=== PATIENT | female | born 1970 | race Two or more races ===

== ENCOUNTER 2016-09-12 10:42 | Emergency (ER) | payer BC ==
[~2016-09-12] VITALS: Ht 157.5 cm; Wt 59.0 kg
[2016-09-12] MEDS ORDERED: KETOROLAC TROMETH 60MG/2ML VIAL IM ONE (11:30)
[2016-09-12 11:32] VITALS: BP 138/95
[2016-09-12 11:38] LABS: Basophils # (auto) 0 uL; Basophils % (auto) 0.6 % (0.0-2.0); Eosinophils # (auto) 0.1 uL; Eosinophils % (auto) 0.7 % (0.0-7.0); Hematocrit 45.3 % (36.0-46.0); Hemoglobin 15.4 g/dL (12.2-16.2); Lymphocytes # (auto) 3.1 uL; Mean Corpuscular Hgb Conc. 33.9 g/dL (32.0-36.0); Mean Corpuscular Volume 88.5 fL (80.0-100.0); Mean Platelet Volume 9.4 fL (7.4-10.4); Monocytes # (auto) 0.6 uL; Monocytes % (auto) 6.4 % (0.0-12.0); Neutrophils # (auto) 4.9 uL; Neutrophils % (auto) 56.3 % (37.0-80.0); Platelet Count (auto) 310 10^3/uL (140-450); Red Cell Distribution Width 13.1 % (11.6-16.0); White Blood Cell 8.6 10^3/uL (4.4-10.8)
[2016-09-12 12:01] LABS: Albumin 4.4 g/dL (3.4-5.0); BUN/Creatinine Ratio 19.3; Bilirubin, Total 0.7 mg/dL (0.2-1.0); Calcium 9.4 mg/dL (8.5-10.1); Potassium 3.7 mmol/L (3.5-5.1); Total Protein 8.4 g/dL (6.4-8.2)
== END 2016-09-12 13:14 | disposition home or self-care (01) ==
LOC: ER 10:46
DX: D25.9 Leiomyoma of uterus, unspecified (principal); E78.5 Hyperlipidemia, unspecified
CPT/HCPCS: 36415; 74176; 76830; 76856; 80053; 85025; 96372; 99285; J1885

== ENCOUNTER → 2016-12-11 | Outpatient (CLI) | payer BC ==
[2016-12-11 08:36] LABS: Basophils # (auto) 0 uL; Basophils % (auto) 0.5 % (0.0-2.0); CONDITION Y; Eosinophils # (auto) 0.1 uL; Eosinophils % (auto) 2.1 % (0.0-7.0); Hematocrit 43.3 % (36.0-46.0); Hemoglobin 14.9 g/dL (12.2-16.2); Lymphocytes # (auto) 2.8 uL; Lymphocytes % (auto) 42.1 % (10.0-50.0); Mean Corpuscular Hemoglobin 30.8 pg (28.0-32.0); Mean Corpuscular Hgb Conc. 34.3 g/dL (32.0-36.0); Mean Corpuscular Volume 89.7 fL (80.0-100.0); Mean Platelet Volume 9.7 fL (7.4-10.4); Monocytes # (auto) 0.5 uL; Monocytes % (auto) 6.8 % (0.0-12.0); Neutrophils # (auto) 3.2 uL; Neutrophils % (auto) 48.5 % (37.0-80.0); Platelet Count (auto) 260 10^3/uL (140-450); Red Cell Distribution Width 13.2 % (11.6-16.0); White Blood Cell 6.7 10^3/uL (4.4-10.8)
[2016-12-11 08:40] LABS: Urine Bilirubin Negative (Negative); Urine Blood Negative /uL (Negative); Urine Color Yellow (Yellow); Urine Glucose Normal (Normal); Urine Ketone Negative (Negative); Urine Nitrite Negative (Negative); Urine RBC <1 /hpf (0 - 4); Urine Squamous Epithelial Cell MOD /hpf (<5); Urine Urobilinogen Normal (Negative); Urine pH 6.5 (5.0-8.0)
[2016-12-11 09:09] LABS: Albumin 3.9 g/dL (3.4-5.0); BUN/Creatinine Ratio 24.4; Bilirubin, Total 0.5 mg/dL (0.2-1.0); Calcium 9.3 mg/dL (8.5-10.1); Potassium 4.2 mmol/L (3.5-5.1)
== END | disposition home or self-care (01) ==
LOC: LAB 08:00
PROVIDERS: ATTEND Family Medicine
DX: F33.1 Major depressive disorder, recurrent, moderate (principal); R11.10 Vomiting, unspecified; Z00.00 Encounter for general adult medical examination without abnormal findings
CPT/HCPCS: 36415; 80053; 80061; 81001; 82306; 82607; 83036; 84443; 85025

== ENCOUNTER → 2018-11-19 | Outpatient (CLI) | payer BC ==
[2018-11-19 08:50] LABS: Urine Bacteria NONE SEEN /hpf (None Seen); Urine Blood Negative /uL (Negative); Urine Mucus FEW (None Seen); Urine Specific Gravity 1.018 (1.001-1.035); Urine WBC 1 /hpf (0 - 5)
[2018-11-19 08:54] LABS: Basophils # (auto) 0 uL; Basophils % (auto) 0.7 % (0.0-2.0); Eosinophils # (auto) 0.1 uL; Eosinophils % (auto) 1.3 % (0.0-7.0); Hematocrit 43.4 % (36.0-46.0); Hemoglobin 14.5 g/dL (12.2-16.2); Lymphocytes # (auto) 1.9 uL; Lymphocytes % (auto) 31.6 % (10.0-50.0); Mean Corpuscular Hemoglobin 30.1 pg (28.0-32.0); Mean Corpuscular Hgb Conc. 33.3 g/dL (32.0-36.0); Mean Corpuscular Volume 90.2 fL (80.0-100.0); Monocytes # (auto) 0.5 uL; Monocytes % (auto) 8.5 % (0.0-12.0); Neutrophils # (auto) 3.5 uL; Neutrophils % (auto) 57.9 % (37.0-80.0); Nucleated Red Blood Cells % 0.4 %; Platelet Count (auto) 231 10^3/uL (140-450); Red Blood Cells 4.81 10^6/uL (4.0-5.20); Red Cell Distribution Width 13.3 % (11.8-14.3); White Blood Cell 5.9 10^3/uL (4.4-10.8)
[2018-11-19 09:15] LABS: Calcium 9.3 mg/dL (8.5-10.1); Potassium 4.2 mmol/L (3.5-5.1)
[2018-11-19 09:21] LABS: Bilirubin, Total 0.6 mg/dL (0.2-1.0); Total Protein 7.8 g/dL (6.4-8.2)
== END | disposition home or self-care (01) ==
LOC: LAB 08:24
PROVIDERS: ATTEND Family Medicine
DX: E55.9 Vitamin D deficiency, unspecified (principal); E78.00 Pure hypercholesterolemia, unspecified; E67.8 Other specified hyperalimentation; F41.9 Anxiety disorder, unspecified
CPT/HCPCS: 36415; 80053; 80061; 81001; 82306; 82607; 84443; 85025

== ENCOUNTER → 2020-08-25 | Outpatient (CLI) | payer BC | END | disposition home or self-care (01) | LOC: XYW 15:02 | PROVIDERS: ATTEND Family Medicine | DX: S83.251A Bucket-handle tear of lateral meniscus, current injury, right knee, initial encounter (principal); M94.261 Chondromalacia, right knee; M25.461 Effusion, right knee; M25.861 Other specified joint disorders, right knee; M89.8X8 Other specified disorders of bone, other site; M85.68 Other cyst of bone, other site; G89.29 Other chronic pain; M25.512 Pain in left shoulder; X58.XXXA Exposure to other specified factors, initial encounter; Y93.89 Activity, other specified; Y92.89 Other specified places as the place of occurrence of the external cause; Y99.8 Other external cause status | CPT/HCPCS: 73721 ==

== ENCOUNTER 2020-10-05 06:11 | Day surgery (SDC) | payer BC ==
[2020-10-01 10:25] LABS: Basophils # (auto) 0 10 ^3/uL (0-0.2); Basophils % (auto) 0.4 % (0.0-2.0); Eosinophils # (auto) 0.1 10 ^3/uL (0-0.8); Eosinophils % (auto) 1.1 % (0.0-7.0); Hematocrit 43.6 % (36.0-46.0); Hemoglobin 15.1 g/dL (12.2-16.2); Lymphocytes # (auto) 2.2 10 ^3/uL (0.4-5.4); Lymphocytes % (auto) 34.7 % (10.0-50.0); Mean Corpuscular Hemoglobin 31.2 pg (28.0-32.0); Mean Corpuscular Hgb Conc. 34.5 g/dL (32.0-36.0); Mean Corpuscular Volume 90.3 fL (80.0-100.0); Monocytes # (auto) 0.5 10 ^3/uL (0-1.3); Monocytes % (auto) 7.1 % (0.0-12.0); Neutrophils # (auto) 3.6 10 ^3/uL (1.6-8.6); Neutrophils % (auto) 56.7 % (37.0-80.0); Nucleated Red Blood Cells % 0.1 %; Red Blood Cells 4.84 10^6/uL (4.0-5.20); Red Cell Distribution Width 12.9 % (11.8-14.3); White Blood Cell 6.4 10^3/uL (4.4-10.8)
[2020-10-01 10:32] LABS: Urine Bacteria NONE SEEN /hpf (None Seen); Urine Blood Negative /uL (Negative); Urine Mucus FEW (None Seen); Urine WBC 12 /hpf (0 - 5)
[2020-10-01 10:45] LABS: INR 0.98 (0.9-1.15)
[2020-10-01 10:57] LABS: Albumin 4.1 g/dL (3.4-5.0); Calcium 9.4 mg/dL (8.5-10.1)
[2020-10-01 11:01] LABS: BUN/Creatinine Ratio 25.7; Bilirubin, Total 0.9 mg/dL (0.2-1.0)
[~2020-10-05] VITALS: Ht 157.5 cm; Wt 59.0 kg
[~2020-10-05 06:11] MED LIST: LAMO100T44 PO; QUET25TA46 PO; TOPI25TA84 PO
[2020-10-05] MEDS ORDERED: ceFAZolin 1GM/50ML 50 ML IV ONE (06:50)
[2020-10-05] MEDS ORDERED: EPINEPHrine HCL 1 MG/1 ML AMP ONE (07:14)
[2020-10-05] MEDS ORDERED: PHENYLEPHRINE HCL 10 MG/ML VL IV ONE (07:15)
[2020-10-05] MEDS ORDERED: METOCLOPRAMIDE HCL 5MG/ml INJ 2ml VIAL IV ONE (07:15)
[2020-10-05] MEDS ORDERED: SUCCINYLCHOLINE CHLORIDE 20 MG/ML 10ML VIAL IV ONE (07:15)
[2020-10-05] MEDS ORDERED: fentaNYL CITRATE 100 MCG/2 ML VL ONE (07:20)
[2020-10-05] MEDS ORDERED: MIDAZOLAM HCL 1MG/1ML-2 ML VIAL ONE (07:20)
[2020-10-05] MEDS ORDERED: MEPERIDINE HCL (50 MG/ML) 1 ML VIAL ONE (07:21)
[2020-10-05] MEDS ORDERED: PROPOFOL 10 MG/ML 20 ML IV ONE (07:43)
[2020-10-05] MEDS ORDERED: DexAMETHasone SOD PHOS 10MG/1ML VIAL INJ ONE (07:43)
[2020-10-05] MEDS ORDERED: MIDAZOLAM HCL 1MG/1ML-2 ML VIAL IV PRN (08:15)
[2020-10-05] MEDS ORDERED: HYDROmorphone HCL 2 MG/ML VL IV PRN (08:15)
[2020-10-05] MEDS ORDERED: LABETALOL HCL 5 MG/ML 4ML SYRINGE IV PRN (08:15)
[2020-10-05] MEDS ORDERED: KETOROLAC TROMETH 30 MG/ML 1ML VIAL IV ONE (08:15)
[2020-10-05] MEDS ORDERED: ePHEDrine SULFATE 50 MG/ML AMP IV PRN (08:15)
[2020-10-05] MEDS ORDERED: MORPHINE SULFATE 4 MG/ML SYR/VIAL IV PRN (08:15)
[2020-10-05] MEDS ORDERED: ONDANSETRON HCL 4 MG/2 ML VIAL IV PRN (08:15)
[2020-10-05] MEDS: BUPIVACAINE HCL 50 ML ONE (08:40)
[2020-10-05 09:50] VITALS: BP 108/70
== END 2020-10-05 10:00 | disposition home or self-care (01) ==
LOC: SUR 06:11
PROVIDERS: ATTEND Orthopaedic Surgery Sports Medicine
DX: M23.202 Derangement of unspecified lateral meniscus due to old tear or injury, unspecified knee (principal); F32.9 Major depressive disorder, single episode, unspecified; F29 Unspecified psychosis not due to a substance or known physiological condition; F41.9 Anxiety disorder, unspecified; Z20.822 Contact with and (suspected) exposure to COVID-19; Z98.890 Other specified postprocedural states; Z79.899 Other long term (current) drug therapy
CPT/HCPCS: 29879; 29881; 36415; 80053; 81001; 84702; 85025; 85610; 85730; J0171; J0330; J0690; J1100; J1885; J2175; J2250; J2370; J2704; J2765; J3010; J3490; U0003

== ENCOUNTER 2021-01-07 17:50 | Emergency (ER) | payer BC ==
[~2021-01-07] VITALS: Ht 157.5 cm; Wt 59.9 kg
[2021-01-07] MEDS ORDERED: ACETAMINOPHEN 325 MG TAB PO ONE (19:45)
[2021-01-07] MEDS ORDERED: ONDANSETRON HCL 4 MG/2 ML VIAL IV ONE (19:45)
[2021-01-07 19:52] LABS: Basophils # (auto) 0.1 10 ^3/uL (0-0.2); Eosinophils # (auto) 0.1 10 ^3/uL (0-0.8); Eosinophils % (auto) 1.1 % (0.0-7.0); Hematocrit 42.6 % (36.0-46.0); Lymphocytes # (auto) 3.2 10 ^3/uL (0.4-5.4); Lymphocytes % (auto) 40.2 % (10.0-50.0); Mean Corpuscular Hgb Conc. 35.1 g/dL (32.0-36.0); Mean Corpuscular Volume 88.3 fL (80.0-100.0); Monocytes # (auto) 0.4 10 ^3/uL (0-1.3); Neutrophils # (auto) 4.2 10 ^3/uL (1.6-8.6); Neutrophils % (auto) 52.7 % (37.0-80.0); Nucleated Red Blood Cells % 0.2 %; Red Blood Cells 4.83 10^6/uL (4.0-5.20); Red Cell Distribution Width 13.7 % (11.8-14.3); White Blood Cell 8.1 10^3/uL (4.4-10.8)
[2021-01-07 20:04] LABS: Albumin 4.1 g/dL (3.4-5.0); Anion Gap 7 (5-15); Blood Urea Nitrogen 14 mg/dL (7-18); Calcium 9.3 mg/dL (8.5-10.1); Carbon Dioxide 24 mmol/L (21-32); Chloride 108 mmol/L (98-107); Glucose 93 mg/dL (74-106); Magnesium 2.3 mg/dL (1.6-2.6); Potassium 3.7 mmol/L (3.5-5.1); Sodium 139 mmol/L (136-145)
[2021-01-07 20:10] LABS: Alanine Aminotransferase 51 U/L (13-56); Alkaline Phosphatase 108 U/L (45-117); Aspartate Aminotransferase 22 U/L (15-37); BUN/Creatinine Ratio 16.9; Bilirubin, Total 0.8 mg/dL (0.2-1.0); GFR African American 94 mL/min; GFR Non-African American 77 mL/min
[2021-01-07 23:15] VITALS: BP 133/78
== END 2021-01-07 23:16 | disposition home or self-care (01) ==
LOC: ER 17:50
DX: M79.18 Myalgia, other site (principal); F41.9 Anxiety disorder, unspecified; R51.9 Headache, unspecified; R07.89 Other chest pain; M54.2 Cervicalgia; E78.5 Hyperlipidemia, unspecified; Z79.899 Other long term (current) drug therapy
CPT/HCPCS: 36415; 71045; 72131; 80053; 83735; 84484; 85025; 93005

== ENCOUNTER → 2021-06-21 | Day surgery (SDC) | payer BC ==
[2021-06-16 10:21] LABS: Basophils # (auto) 0 10 ^3/uL (0-0.2); Basophils % (auto) 0.4 % (0.0-2.0); Eosinophils # (auto) 0 10 ^3/uL (0-0.8); Eosinophils % (auto) 0.4 % (0.0-7.0); Hematocrit 42.2 % (36.0-46.0); Hemoglobin 14.3 g/dL (12.2-16.2); Lymphocytes # (auto) 2.3 10 ^3/uL (0.4-5.4); Lymphocytes % (auto) 38.1 % (10.0-50.0); Mean Corpuscular Hemoglobin 30.4 pg (28.0-32.0); Mean Corpuscular Hgb Conc. 33.8 g/dL (32.0-36.0); Mean Corpuscular Volume 89.8 fL (80.0-100.0); Monocytes # (auto) 0.3 10 ^3/uL (0-1.3); Monocytes % (auto) 5.5 % (0.0-12.0); Neutrophils # (auto) 3.3 10 ^3/uL (1.6-8.6); Neutrophils % (auto) 55.6 % (37.0-80.0); Nucleated Red Blood Cells % 0.1 %; Red Blood Cells 4.69 10^6/uL (4.0-5.20); Red Cell Distribution Width 13.2 % (11.8-14.3)
[2021-06-16 10:29] LABS: Urine Bacteria FEW /hpf (None Seen); Urine Blood Negative /uL (Negative); Urine Mucus FEW (None Seen); Urine Specific Gravity 1.019 (1.001-1.035); Urine WBC 1 /hpf (0 - 5)
[2021-06-16 11:04] LABS: Albumin 4.2 g/dL (3.4-5.0); Total Protein 7.9 g/dL (6.4-8.2)
[2021-06-16 12:42] LABS: Potassium 4.3 mmol/L (3.5-5.1)
[~2021-06-21] VITALS: Ht 157.5 cm; Wt 61.2 kg
[~2021-06-21] MED LIST changes: +ACET1CAP14 PO; +BREX1TAB3 PO; +BUPIVACAINE HCL 50 ML ONE; +EPINEPHrine HCL 1 MG/1 ML AMP ONE; +HYDR1SYP3 PO; +HYDROmorphone HCL 2 MG/ML VL IV PRN; +IBUP400T22 PO; -LAMO100T44 PO; +LIDOCAINE 2% (LOCAL ANESTH.) PF 5ml SDV ONE; +MIDAZOLAM HCL 2MG/2ML 2ml VIAL (1mg/ml) ONE; +ONDANSETRON HCL 4 MG/2 ML VIAL IV PRN; +ONDANSETRON HCL 4 MG/2 ML VIAL ONE; +PROPOFOL 10 MG/ML 20 ML IV ONE; +QUET1TAB11 PO; -QUET25TA46 PO; -TOPI25TA84 PO; +ceFAZolin 1GM/50ML 100 ML IV ONE; +fentaNYL CITRATE 5 ML ONE
[2021-06-21] MEDS: HYDROmorphone HCL 2 MG/ML VL IV PRN ×4 (16:10→16:50)
[2021-06-21 18:10] LABS: Basophils # (auto) 0 10 ^3/uL (0-0.2); Basophils % (auto) 0.4 % (0.0-2.0); Eosinophils # (auto) 0 10 ^3/uL (0-0.8); Hematocrit 36.5 % (36.0-46.0); Hemoglobin 12.1 g/dL (12.2-16.2); Lymphocytes # (auto) 1.2 10 ^3/uL (0.4-5.4); Lymphocytes % (auto) 11.3 % (10.0-50.0); Mean Corpuscular Hemoglobin 30.1 pg (28.0-32.0); Mean Corpuscular Hgb Conc. 33.2 g/dL (32.0-36.0); Mean Corpuscular Volume 90.6 fL (80.0-100.0); Monocytes # (auto) 0.5 10 ^3/uL (0-1.3); Monocytes % (auto) 4.6 % (0.0-12.0); Neutrophils # (auto) 8.7 10 ^3/uL (1.6-8.6); Neutrophils % (auto) 83.7 % (37.0-80.0); Red Blood Cells 4.03 10^6/uL (4.0-5.20); Red Cell Distribution Width 13.2 % (11.8-14.3); White Blood Cell 10.4 10^3/uL (4.4-10.8)
[2021-06-21 18:27] LABS: Albumin 3.3 g/dL (3.4-5.0); Calcium 8.1 mg/dL (8.5-10.1); Potassium 3.7 mmol/L (3.5-5.1)
[2021-06-21 18:33] LABS: BUN/Creatinine Ratio 21.4; Bilirubin, Total 0.5 mg/dL (0.2-1.0); Total Protein 6.1 g/dL (6.4-8.2)
[2021-06-21 19:10] VITALS: BP 126/59
== END | disposition home or self-care (01) ==
LOC: SUR 09:23
PROVIDERS: ATTEND Orthopaedic Surgery Sports Medicine
DX: M75.102 Unspecified rotator cuff tear or rupture of left shoulder, not specified as traumatic (principal); M61.412 Other calcification of muscle, left shoulder; M75.51 Bursitis of right shoulder; G89.29 Other chronic pain; F41.9 Anxiety disorder, unspecified; F32.9 Major depressive disorder, single episode, unspecified; Z20.822 Contact with and (suspected) exposure to COVID-19
CPT/HCPCS: 29826; 29827; 36415; 36600; 71045; 80053; 81001; 81025; 82805; 84484; 84702; 85025; C1713; J0171; J0690; J1170; J2001; J2250; J2405; J2704; J3010; J3490; U0003; A4565

== ENCOUNTER → 2021-08-30 | Outpatient (CLI) | payer BC ==
[~2021-08-30] MED LIST changes: -BUPIVACAINE HCL 50 ML ONE; -EPINEPHrine HCL 1 MG/1 ML AMP ONE; -HYDROmorphone HCL 2 MG/ML VL IV PRN; -LIDOCAINE 2% (LOCAL ANESTH.) PF 5ml SDV ONE; -MIDAZOLAM HCL 2MG/2ML 2ml VIAL (1mg/ml) ONE; -ONDANSETRON HCL 4 MG/2 ML VIAL IV PRN; -ONDANSETRON HCL 4 MG/2 ML VIAL ONE; -PROPOFOL 10 MG/ML 20 ML IV ONE; -ceFAZolin 1GM/50ML 100 ML IV ONE; -fentaNYL CITRATE 5 ML ONE
[2021-08-30 08:11] LABS: Basophils # (auto) 0 10 ^3/uL (0-0.2); Basophils % (auto) 0.5 % (0.0-2.0); Eosinophils # (auto) 0.1 10 ^3/uL (0-0.8); Eosinophils % (auto) 2.2 % (0.0-7.0); Hematocrit 42.2 % (36.0-46.0); Hemoglobin 14.7 g/dL (12.2-16.2); Lymphocytes # (auto) 2.5 10 ^3/uL (0.4-5.4); Lymphocytes % (auto) 43.9 % (10.0-50.0); Mean Corpuscular Hemoglobin 31.2 pg (28.0-32.0); Mean Corpuscular Hgb Conc. 34.8 g/dL (32.0-36.0); Mean Corpuscular Volume 89.6 fL (80.0-100.0); Monocytes # (auto) 0.4 10 ^3/uL (0-1.3); Monocytes % (auto) 7.3 % (0.0-12.0); Neutrophils # (auto) 2.6 10 ^3/uL (1.6-8.6); Neutrophils % (auto) 46.1 % (37.0-80.0); Nucleated Red Blood Cells % 0.1 %; Red Blood Cells 4.71 10^6/uL (4.0-5.20); Red Cell Distribution Width 13.1 % (11.8-14.3); White Blood Cell 5.6 10^3/uL (4.4-10.8)
[2021-08-30 08:15] LABS: Urine Bacteria FEW /hpf (None Seen); Urine Blood Negative /uL (Negative); Urine Mucus FEW (None Seen); Urine Specific Gravity 1.024 (1.001-1.035); Urine WBC 32 /hpf (0 - 5)
[2021-08-30 08:48] LABS: Albumin 4.1 g/dL (3.4-5.0); BUN/Creatinine Ratio 25.3; Bilirubin, Total 0.7 mg/dL (0.2-1.0); Calcium 9.3 mg/dL (8.5-10.1); Total Protein 8.2 g/dL (6.4-8.2)
== END | disposition home or self-care (01) ==
LOC: LAB 07:47
PROVIDERS: ATTEND Student in an Organized Health Care Education/Training Program
DX: Z12.11 Encounter for screening for malignant neoplasm of colon (principal); R73.9 Hyperglycemia, unspecified; R03.0 Elevated blood-pressure reading, without diagnosis of hypertension; E78.5 Hyperlipidemia, unspecified
CPT/HCPCS: 36415; 80053; 80061; 81001; 83036; 84443; 85025

== ENCOUNTER → 2021-10-05 | Outpatient (CLI) | payer BC | END | disposition home or self-care (01) | LOC: LAB 08:12 | PROVIDERS: ATTEND Student in an Organized Health Care Education/Training Program | DX: M25.50 Pain in unspecified joint (principal) | CPT/HCPCS: 36415; 84550; 85652; 86038; 86431 ==

== ENCOUNTER 2024-09-25 16:32 | Inpatient (IN) | payer BC, OTHER ==
[~2024-09-25] VITALS: Ht 157.5 cm; Wt 65.1 kg
[~2024-09-25 16:32] MED LIST changes: +HYDR10SY18 PO; -HYDR1SYP3 PO; +IBUP-1453 PO; -IBUP400T22 PO
--- NOTE | 2024-09-25 17:10 | ED.PDOC ---
HPI Comments HPI: 54y F who presents to the ED via EMS for chief complaint of chest pain. - pt states she has been having chest pressure since 1200 this afternoon - pt states her pain is substernal, constant, non-radiating, with no associated exacerbating or relieving factors - pt states has been associated shortness of breath, generalized malaise and nonspecific mild diarrhea but denies any other symptoms. Patient states that the discomfort radiates to her bilateral neck. - pt states she called EMS and upon arrival, pt states she described her chest pain as chest pressure, and after checking vitals, pt denies any associated symptoms - pt states she went to local ED 2 weeks prior for similar complaints and states she was dx with anxiety and given depressant and discharged - pt otherwise denies any chest pain at this time upon ED arrival Past Medical history: anxiety, gastritis Past Surgical history: knee and L arm surgery Medications: Zoloft, clonazepam Allergies: nkda Social History: denies ETOH, denies tobacco use, denies drug use REGAN: HPI: Poor Historian. REVIEW OF SYSTEMS: CONSTITUTIONAL: Denies acute: fever, diaphoresis, chills, generalized weakness. HEAD: Denies acute: headache, photophobia Eyes: Denies acute: Double vision, vision loss, eye pain, eye discharge. EARS: Denies acute: tinnitus, hearing loss, ear discharge, ear pain, THROAT: Denies acute: sore throat, swelling, difficulty swallowing , pain with swallowing, change in voice. NECK: Denies acute: neck pain, neck swelling, stiff neck. HEART: Denies acute : palpitations, LUNGS: Denies acute: SOB, wheezing, cough, hemoptysis ABDOMEN: Denies acute: abdominal pain, Nausea, Vomiting, diarrhea, melena , hematemesis, hematochezia SKIN: Denies acute: rash, redness, lesions, itchiness. EXTREMITIES: Denies acute: calf pain, numbness, tingling, weakness, denies pain in extremity. Denies acute: Low back pain. Neuro: Denies acute: focal neurological deficit, motor or sensory focal neurological deficit, tremors, seizure like activity, confusion, dizziness, change in mental status, loss of bowel or bladder function, cauda equina like symptoms. : Denies acute: dysuria, hematuria, flank pain, increase in urinary frequency. PSYCH: Denies acute: hallucination, suicidal ideation, homicidal ideation. FEMALE: Denies acute: abnormal vaginal bleeding, foul odor, unusual discharge. PHYSICAL EXAM: General: ----no----acute distress, awake and alert. Head: normocephalic, atraumatic. Neck: supple, trachea is midline, no swelling. Throat: Normal phonation. Eyes:, no erythema, no purulent discharge, no proptosis, no icterus. Heart: regular rate, regular rhythm, no significant murmur appreciated. Lungs: no apparent respiratory distress, Able to speak in full sentences. No wheezing, no rhonchi, no crackles. No stridors Clear to auscultation bilaterally. Abdomen: non tender to palpation, non distended, soft, no guarding, no rebound, + bowel sounds. Neuro: Awake, Alert, oriented to name, self, situation, follows commands GCS=15. Speech is normal. Skin: no petechia, no purpura, no cyanosis, non-pale, not jaundice. Lower extremities: --no - Pitting edema no deformity, no focal swelling, no calf TTP. Makes eye contact. moves all four extremities. Face: no apparent facial droop. ED COURSE: Chief Complaint: Nausea/Vomiting Time Seen by MD: 16:49 Primary Care Provider: GINGER Falcon Notes: Medications, Allergies Allergies: Coded Allergies: NO KNOWN ALLERGIES (Unverified , 11/12/14) Home Meds Reported Medications Cholecalciferol (D3 2000) 2,000 Unit Tab, 2000 UNIT PO DAILY for supplement, #1 TAB 09/26/24 Magnesium (Magnesium) 200 Mg Tab, 200 MG PO DAILY for supplement, #2 TAB 09/26/24 Atorvastatin Calcium (Lipitor) 10 Mg Tab, 10 MG PO DAILY for hyperlipidemia, TAB 09/26/24 Clonazepam (Clonazepam) 2 Mg Tab, 2 MG PO HS, TAB 09/26/24 Sertraline Hcl (Sertraline Hcl) 25 Mg Tab, 25 MG PO DAILY, TAB 09/26/24 Ibuprofen (Ibuprofen) 400 Mg Tab, 400 MG PO, TAB 06/16/21 Information Source: Patient, Emergency Med Personnel Mode of Arrival: EMS Past Medical History PAST MEDICAL HISTORY: Anxiety, High Lipids 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 Was a procedure done?: No CP Differential Dx Differential Diagnosis: N/A Differential Diagnosis: Other (Ddx include but not limitied to gastritis, musculoskeletal pain, radiculopathy, atypical chest pain, dissection, aneurysm, ACS, unstable angina, hiatal hernia, GERD, anxiety, costochondritis, PE, p neumothroax, neoplasm, cardiac ischemia, drug abuse, anemia.) X-Ray, Labs, Meds, VS Vital Signs Date Time Temp Pulse Resp B/P (MAP) Pulse Ox O2 Delivery O2 Flow Rate FiO2 09/25/24 20:03 78 16 158/91 (113) 100 09/25/24 17:49 98.0 81 16 157/95 (115) 99 98.0 09/25/24 16:51 98.4 82 18 154/92 (112) 100 98.4 09/25/24 16:45 85 Lab Test 09/25/24 20:30 09/25/24 18:38 09/25/24 17:48 Range/Units Urine Color Colorless Yellow Urine Clarity Clear Clear Urine pH 6.0 5.0-9.0 Urine Specific [place] 1.003 1.001-1.035 Urine Protein Negative Negative Urine Ketones 1+ H Negative Urine Blood Negative Negative /uL Urine Nitrite Negative Negative Urine Bilirubin Negative Negative Urine Urobilinogen Normal Negative mg/dL Urine Leukocyte Esterase Negative Negative /uL Urine RBC <1 0 - 4 /hpf Urine Microscopic WBC < 1 0-5 /HPF Urine Squamous Epithelial Cells Few <5 /hpf Urine Bacteria None seen None Seen /hpf Urine Glucose Normal Normal mg/dL Troponin I High Sensitivity < 3 L < 3 L </=34 ng/L Lipase 31 12-53 U/L White Blood Count 9.7 4.4-10.8 10^3/uL Red Blood Count 4.86 4.0-5.20 10^6/uL Hemoglobin 14.7 12.2-16.2 g/dL Hematocrit 42.5 36.0-46.0 % Mean Corpuscular Volume 87.6 80.0-100.0 fL Mean Corpuscular Hemoglobin 30.2 28.0-32.0 pg Mean Corpuscular Hemoglobin Concent 34.5 32.0-36.0 g/dL Red Cell Distribution Width 13.5 11.8-14.3 % Platelet Count 296 140-450 10^3/uL Mean Platelet Volume 8.7 6.9-10.8 fL Neutrophils (%) (Auto) 74.2 37.0-80.0 % Lymphocytes (%) (Auto) 18.3 10.0-50.0 % Monocytes (%) (Auto) 7.1 0.0-12.0 % Eosinophils (%) (Auto) 0.2 0.0-7.0 % Basophils (%) (Auto) 0.2 0.0-2.0 % Neutrophils # (Auto) 7.2 1.6-8.6 10 ^3/uL Lymphocytes # (Auto) 1.8 0.4-5.4 10 ^3/uL Monocytes # (Auto) 0.7 0-1.3 10 ^3/uL Eosinophils # (Auto) 0 0-0.8 10 ^3/uL Basophils # (Auto) 0 0-0.2 10 ^3/uL Nucleated Red Blood Cells 0.1 % Sodium Level 131 L 136-145 mmol/L Potassium Level 3.8 3.5-5.1 mmol/L Chloride Level 96 L 98-107 mmol/L Carbon Dioxide Level 24 20-31 mmol/L Anion Gap 11 5-15 Blood Urea Nitrogen 9 9-23 mg/dL Creatinine 0.77 0.550-1.02 mg/dL Glomerular Filtration Rate Calc 92 >90 mL/min BUN/Creatinine Ratio 11.7 10.0-20.0 Serum Glucose 115 H 74-106 mg/dL Calcium Level 9.8 8.7-10.4 mg/dL Total Bilirubin 1.2 H 0.2-1.0 mg/dL Aspartate Amino Transferase (AST) 24 13-40 U/L Alanine Aminotransferase (ALT) 45 H 7-40 U/L Alkaline Phosphatase 85 46-116 U/L B-Type Natriuretic Peptide 9.80 0-100 pg/mL Total Protein 7.5 5.7-8.2 g/dL Albumin 5.1 H 3.2-4.8 g/dL [facility] [id number] [place] [id number] Ph: [phone] DIAGNOSTIC IMAGING Diagnostic Imaging Report : [id number] Signed PATIENT: LYNDSAY REGAN ACCT: [id number] UNIT: [id number] : 1970 LOC: ER ROOM / BED: / AGE / SEX: 54 / F ADM STATUS: REG ER SERVICE 1712 ORDERING PHYSICIAN: SAMMI HORNER DO PROCEDURE(s): CXRP - CHEST PORTABLE REASON: cp ORDER NUMBER(s): [id number], ACCESSION NUMBER(s): [id number] INDICATION: cp TECHNIQUE: Frontal view of the chest. COMPARISON: CHEST XRAY 1 VIEW on DOS: 06/21/21, CHEST PORTABLE on DOS: 01/07/21, CXRP on DOS: 01/07/21 FINDINGS: Findings:. The heart and mediastinal contours are grossly unremarkable. There is no evidence of pleural disease. The lungs are clear. The bony structures of the chest are intact without fracture. IMPRESSION: 1. No evidence of acute disease. ATED BY: KARL DUMONT MD DICTATED DATE/TIME: 09/25/241811 SIGNED BY: KARL DUMONT MD SIGNED DATE/TIME: 09/25/241811 CC: Time of 1ST Reevaluation: 00:00 Reevaluation 1ST: Unchanged Patient Education/Counseling: Diagnosis, Treatment Family Education/Counseling: No Family Present Departure 1 Departure Time of Disposition: 19:33 Impression: Primary Impression: Chest pain Disposition: ADMITTED INPATIENT Admit to: Tele Condition: Guarded Discharged With: Self Critical Care Note Critical Care Time?: No Heart Score Heart Score: Heart Score Response (Comments) Value History Moderate Suspicious 1 EKG Normal 0 Age 45-64 1 Risk Factors No known risk factors 0 Troponin Normal limit 0 Total 2 I personally scribed for SAMMI HORNER DO ([email or web address]) on 09/25/24 at 17:10. Electronically submitted by Hadley Lea ([facility] [employer]). I personally scribed for SAMIM HORNER DO ([email or web address]) on 09/25/24 at 18:00. Electronically submitted by Hadley Lea ([email or web address]). I personally scribed for SAMMI HORNER DO ([email or web address]) on 09/25/24 at 19:07. Electronically submitted by Hadley Lea ([email or web address]). SAMMI HORNER DO September 25, 2024 17:10
--- NOTE | 2024-09-25 18:14 | DVH ---
INDICATION: cp TECHNIQUE: Frontal view of the chest. COMPARISON: CHEST XRAY 1 VIEW on DOS: 06/21/21, CHEST PORTABLE on DOS: 01/07/21, CXRP on DOS: 01/07/21 FINDINGS: Findings:. The heart and mediastinal contours are grossly unremarkable. There is no evidence of pleu ral disease. The lungs are clear. The bony structures of the chest are intact without fracture. IMPRESSION: 1. No evidence of acute disease.
[2024-09-25 18:20] LABS: Basophils # (auto) 0 10 ^3/uL (0-0.2); Basophils % (auto) 0.2 % (0.0-2.0); Eosinophils # (auto) 0 10 ^3/uL (0-0.8); Eosinophils % (auto) 0.2 % (0.0-7.0); Hematocrit 42.5 % (36.0-46.0); Hemoglobin 14.7 g/dL (12.2-16.2); Lymphocytes # (auto) 1.8 10 ^3/uL (0.4-5.4); Lymphocytes % (auto) 18.3 % (10.0-50.0); Mean Corpuscular Hemoglobin 30.2 pg (28.0-32.0); Mean Corpuscular Hgb Conc. 34.5 g/dL (32.0-36.0); Mean Corpuscular Volume 87.6 fL (80.0-100.0); Monocytes # (auto) 0.7 10 ^3/uL (0-1.3); Monocytes % (auto) 7.1 % (0.0-12.0); Neutrophils # (auto) 7.2 10 ^3/uL (1.6-8.6); Neutrophils % (auto) 74.2 % (37.0-80.0); Nucleated Red Blood Cells % 0.1 %; Platelet Count (auto) 296 10^3/uL (140-450); Red Blood Cells 4.86 10^6/uL (4.0-5.20); Red Cell Distribution Width 13.5 % (11.8-14.3); White Blood Cell 9.7 10^3/uL (4.4-10.8)
[2024-09-25 18:34] LABS: Alkaline Phosphatase 85 U/L (46-116); Anion Gap 11 (5-15); Aspartate Aminotransferase 24 U/L (13-40); BUN/Creatinine Ratio 11.7 (10.0-20.0); Blood Urea Nitrogen 9 mg/dL (9-23); Calcium 9.8 mg/dL (8.7-10.4); Carbon Dioxide 24 mmol/L (20-31); Potassium 3.8 mmol/L (3.5-5.1); Total Protein 7.5 g/dL (5.7-8.2)
[2024-09-25 18:35] LABS: Bilirubin, Total 1.2 mg/dL (0.2-1.0)
[2024-09-25 18:42] LABS: Alanine Aminotransferase 45 U/L (7-40); Albumin 5.1 g/dL (3.2-4.8); Chloride 96 mmol/L (98-107); Glucose 115 mg/dL (74-106); Sodium 131 mmol/L (136-145)
[2024-09-25] MEDS: NITROGLYCERIN 0.4 MG SL TAB SL ONE (20:11)
[2024-09-25] MEDS: ASPirin-EC 325mg tab PO ONE (20:11)
[2024-09-25] MEDS: SODIUM CHLORIDE 0.9% 1,000 ML IV ONE (20:23)
[2024-09-25 21:36] LABS: Urine Bacteria None Seen /hpf (None Seen)
[2024-09-25 21:42] LABS: Urine Blood Negative /uL (Negative); Urine Clarity Clear (Clear); Urine Color Colorless (Yellow); Urine Protein, UAD Negative (Negative); Urine Specific Gravity 1.003 (1.001-1.035); Urine Squamous Epithelial Cell FEW /hpf (<5); Urine Urobilinogen Normal (Negative); Urine WBC < 1 /HPF (0-5)
[2024-09-26 00:03] VITALS: PULSE 79; RESP 17; O2SAT 100
[2024-09-26] MEDS: LORazepam 2MG/ML-1ML VIAL IV ONE ×2 (00:12→18:18)
[2024-09-26] MEDS: PANTOPRAZOLE 40 MG/10 ML VIAL INJ IV SCH (00:12)
[2024-09-26 01:00] VITALS: BP 149/89; PULSE 79; RESP 17; TEMP 97.5; O2SAT 100
[2024-09-26] MEDS ORDERED: SERT25TA28 PO (04:42)
[2024-09-26] MEDS ORDERED: CHOL1TAB28 PO (04:50)
[2024-09-26] MEDS ORDERED: MAGN200T PO (04:50)
[2024-09-26] MEDS ORDERED: ATOR10TA PO (04:50)
[2024-09-26] MEDS ORDERED: CLON-857 PO (04:50)
[2024-09-26 05:00] VITALS: BP 148/91; PULSE 91; RESP 18; TEMP 97; O2SAT 99
[2024-09-26] MEDS: LOSARTAN POTASSIUM 25 MG TAB PO SCH (05:47)
--- NOTE | 2024-09-26 05:54 | DVHHP2 ---
History of Present Illness History of Present Illness A 54-year-old female was brought to the ED via EMS due to chest pain that began at approximately 12:00 PM on the same day. She describes the pain as substernal, constant, and non-radiating, without any aggravating or relieving factors. She notes mild associated malaise and nonspecific diarrhea. She denies associated symptoms such as nausea, vomiting, diaphoresis, or dyspnea. She reports a history of a similar episode two weeks ago for which she visited another local ED. She was told her chest discomfort was likely due to anxiety, was prescribed a depressant, and discharged. She describes the current discomfort as radiating to the bilateral neck. EMS was activated due to her chest pressure and mild generalized weakness. Past Medical History: Anxiety Gastritis Past Surgical History: Left arm surgery Knee surgery Medications : Atorvastatin 10 mg PO daily Cholecalciferol 2000 units PO daily Clonazepam 2 mg PO HS Ibuprofen 400 mg PO PRN Magnesium 200 mg PO BID Sertraline 25 mg PO daily Allergies: No known drug allergies (NKDA) Social History: Denies tobacco use Denies alcohol use Denies illicit drug use Review of Systems Review of Systems General: Denies fever, chills, diaphoresis, or generalized weakness. Head: Denies headache or photophobia. Eyes: Denies visual changes, pain, or discharge. ENT: Denies tinnitus, hearing loss, sore throat, dysphagia, or ear pain. Neck: Denies neck stiffness or swelling. Cardiac: Reports chest pressure. Denies palpitations or syncope. Respiratory: Denies dyspnea, cough, or hemoptysis. GI: Reports mild diarrhea. Denies nausea, vomiting, abdominal pain, or GI bleeding. : Denies dysuria, hematuria, or incontinence. Neuro: Denies focal deficits, weakness, numbness, or altered mental status. Psych: History of anxiety; currently stable per patient report. Allergies: Coded Allergies: NO KNOWN ALLERGIES (Unverified , 11/12/14) Medications Current Medications Medications Dose Ordered Sig/Lainey Route Start Time Stop Time Status Last Admin Dose Admin Acetaminophen 650 mg Q6HP PRN PO 09/25/24 22:15 Enoxaparin Sodium 40 mg DAILY SC 09/26/24 10:00 Pantoprazole Sodium 40 mg DAILY IV 09/25/24 22:15 09/26/24 00:12 40 MG Aspirin 81 mg DAILY PO 09/26/24 10:00 Losartan Potassium 25 mg DAILY PO 09/26/24 05:30 09/26/24 05:47 25 MG Exam Vital Signs Vital Signs Date Time Temp Pulse Resp B/P (MAP) Pulse Ox O2 Delivery O2 Flow Rate FiO2 09/26/24 05:47 148/91 09/26/24 01:00 97.5 79 17 100 97.5 09/26/24 00:03 Room Air* 0 21 Exam General: Alert and oriented x3, in no acute distress. HEENT: Normocephalic, atraumatic. No conjunctival injection or scleral icterus. Neck: Supple, no JVD, no lymphadenopathy. Cardiac: RRR, no murmurs/rubs/gallops. Pulmonary: Clear to auscultation bilaterally, no wheezes or rales. GI: Soft, non-distended, nontender. Extremities: No edema, pulses 2+ bilaterally. Neuro: Alert, no focal deficits. Psych: anxious, cooperative. Labs/Xrays Labs Test 09/25/24 20:30 09/25/24 18:38 09/25/24 17:48 Range/Units Urine Color Colorless Yellow Urine Clarity Clear Clear Urine pH 6.0 5.0-9.0 Urine Specific [place] 1.003 1.001-1.035 Urine Protein Negative Negative Urine Ketones 1+ H Negative Urine Blood Negative Negative /uL Urine Nitrite Negative Negative Urine Bilirubin Negative Negative Urine Urobilinogen Normal Negative mg/dL Urine Leukocyte Esterase Negative Negative /uL Urine RBC <1 0 - 4 /hpf Urine Microscopic WBC < 1 0-5 /HPF Urine Squamous Epithelial Cells Few <5 /hpf Urine Bacteria None seen None Seen /hpf Urine Glucose Normal Normal mg/dL Troponin I High Sensitivity < 3 L </=34 ng/L Lipase 31 12-53 U/L White Blood Count 9.7 4.4-10.8 10^3/uL Red Blood Count 4.86 4.0-5.20 10^6/uL Hemoglobin 14.7 12.2-16.2 g/dL Hematocrit 42.5 36.0-46.0 % Mean Corpuscular Volume 87.6 80.0-100.0 fL Mean Corpuscular Hemoglobin 30.2 28.0-32.0 pg Mean Corpuscular Hemoglobin Concent 34.5 32.0-36.0 g/dL Red Cell Distribution Width 13.5 11.8-14.3 % Platelet Count 296 140-450 10^3/uL Mean Platelet Volume 8.7 6.9-10.8 fL Neutrophils (%) (Auto) 74.2 37.0-80.0 % Lymphocytes (%) (Auto) 18.3 10.0-50.0 % Monocytes (%) (Auto) 7.1 0.0-12.0 % Eosinophils (%) (Auto) 0.2 0.0-7.0 % Basophils (%) (Auto) 0.2 0.0-2.0 % Neutrophils # (Auto) 7.2 1.6-8.6 10 ^3/uL Lymphocytes # (Auto) 1.8 0.4-5.4 10 ^3/uL Monocytes # (Auto) 0.7 0-1.3 10 ^3/uL Eosinophils # (Auto) 0 0-0.8 10 ^3/uL Basophils # (Auto) 0 0-0.2 10 ^3/uL Nucleated Red Blood Cells 0.1 % Sodium Level 131 L 136-145 mmol/L Potassium Level 3.8 3.5-5.1 mmol/L Chloride Level 96 L 98-107 mmol/L Carbon Dioxide Level 24 20-31 mmol/L Anion Gap 11 5-15 Blood Urea Nitrogen 9 9-23 mg/dL Creatinine 0.77 0.550-1.02 mg/dL Glomerular Filtration Rate Calc 92 >90 mL/min BUN/Creatinine Ratio 11.7 10.0-20.0 Serum Glucose 115 H 74-106 mg/dL Calcium Level 9.8 8.7-10.4 mg/dL Total Bilirubin 1.2 H 0.2-1.0 mg/dL Aspartate Amino Transferase (AST) 24 13-40 U/L Alanine Aminotransferase (ALT) 45 H 7-40 U/L Alkaline Phosphatase 85 46-116 U/L B-Type Natriuretic Peptide 9.80 0-100 pg/mL Total Protein 7.5 5.7-8.2 g/dL Albumin 5.1 H 3.2-4.8 g/dL Assessment/Plan Assessment/Plan #Chest pain Continue Aspirin 81 mg daily EKGs: left axis deviation ECHO ordered #Anxiety Lorazepam given #Hypertension/ hypertensive crisis - new onset Losartan 25 mg Monitor BP closely VTE prophylaxis: Lovenox 40 mg daily GI protection: Pantoprazole IV Case discussed with Dr Zaragoza Full code Plan discussed with: Patient, Other (rn) My Orders Orders - BLAS CASEY Procedure Category Date Status Time Admit ADMIT 09/25/24 Transmitted 22:05 Code Status CODE 09/25/24 Transmitted 22:05 Vital Signs KAVITA 09/25/24 In Process 22:05 Review Orders With KAVITA 09/25/24 In Process Adm. 22:05 Consistent DIET 09/26/24 Transmitted Carb(Ccho)Diabetes Breakfast Acetaminophen Tablet PHA 09/25/24 In Process (Tylenol Tablet) 22:15 Notify Of Changes KAVITA 09/25/24 In Process From Base 22:05 Advance Directive KAVITA 09/25/24 In Process 22:05 Patient Condition ORDERS 09/25/24 Transmitted 22:05 Allergies KAVITA 09/25/24 In Process 22:05 Enoxaparin Sodium PHA 09/26/24 In Process (Lovenox) 10:00 Echo 2d Mode Cardiac US 09/25/24 Logged DOP 22:12 Pantoprazole PHA 09/25/24 In Process (Protonix) 22:15 Hemoglobin A1c LAB 09/26/24 Logged 03:46 Thyroid Stimulating LAB 09/26/24 Logged Hormone 03:46 Complete Blood Count LAB 09/26/24 Logged 03:46 Comprehensive LAB 09/26/24 Logged Metabolic Panel 03:46 Aspirin Tablet PHA 09/26/24 In Process 10:00 Lipid Panel LAB 09/26/24 Logged 04:00 Losartan Tablet PHA 09/26/24 In Process (Cozaar Tablet) 05:30 Date of Service: September 25, 2024 Billing Provider: RADHA ZARAGOZA MD Common Visit Codes: 35335-LNUISHP INP/OBS CARE (HIGH) Secondary Visit Codes: 20734-TNEWHCBD CARE PLAN 30 MINUTES BLAS CASEY September 26, 2024 05:54
--- NOTE | 2024-09-26 06:25 | ECG ---
[facility] Test Date: 2024-09-25 Test Time: 16:44:48 Pat Name: LYNDSAY REGAN Department: ED Room: [address] [place] [address] 4 Gender: F Telecommunications Project Manager: SCOTT : 1970 Requested By: SAMMI HORNER Order Number: [id number] Reading MD: Oscar Gamino Measurements Intervals Mathews Rate: 85 P: 37 OH: 167 QRS: -27 QRSD: 91 T: 35 QT: 364 QTc: 433 Interpretive Statements Sinus rhythm Probable left atrial enlargement Borderline left axis deviation Low voltage, precordial leads Abnormal R-wave progression, late transition Borderline T abnormalities, anterior leads Electronically Signed On 09-29-2024 11:57:47 PDT by Oscar Gamino Please click the below link to view image of tracing.
[2024-09-26 06:44] LABS: Alanine Aminotransferase 37 U/L (7-40); Albumin 4.7 g/dL (3.2-4.8); Alkaline Phosphatase 78 U/L (46-116); Anion Gap 10 (5-15); Aspartate Aminotransferase 19 U/L (13-40); BUN/Creatinine Ratio 9.7 (10.0-20.0); Carbon Dioxide 24 mmol/L (20-31); Chloride 103 mmol/L (98-107); Cholesterol 193 mg/dL (< 200); Glucose 100 mg/dL (74-106); Sodium 137 mmol/L (136-145); Total Protein 7.1 g/dL (5.7-8.2); Triglycerides 83 mg/dL (< 150)
[2024-09-26 06:59] LABS: Bilirubin, Total 1.5 mg/dL (0.2-1.0); Blood Urea Nitrogen 7 mg/dL (9-23); HDL Cholesterol 63 mg/dL (40-59); LDL Cholesterol 120 mg/dL (< 100); Potassium 3.5 mmol/L (3.5-5.1)
[2024-09-26 07:11] LABS: Basophils # (auto) 0 10 ^3/uL (0-0.2); Basophils % (auto) 0.3 % (0.0-2.0); Eosinophils # (auto) 0.1 10 ^3/uL (0-0.8); Eosinophils % (auto) 0.8 % (0.0-7.0); Hematocrit 40.5 % (36.0-46.0); Hemoglobin 14.1 g/dL (12.2-16.2); Lymphocytes # (auto) 2.4 10 ^3/uL (0.4-5.4); Lymphocytes % (auto) 37.6 % (10.0-50.0); Mean Corpuscular Hemoglobin 30.6 pg (28.0-32.0); Mean Corpuscular Hgb Conc. 34.9 g/dL (32.0-36.0); Mean Corpuscular Volume 87.7 fL (80.0-100.0); Monocytes # (auto) 0.5 10 ^3/uL (0-1.3); Monocytes % (auto) 7.4 % (0.0-12.0); Neutrophils # (auto) 3.5 10 ^3/uL (1.6-8.6); Neutrophils % (auto) 53.9 % (37.0-80.0); Nucleated Red Blood Cells % 0.1 %; Platelet Count (auto) 266 10^3/uL (140-450); Red Blood Cells 4.62 10^6/uL (4.0-5.20); Red Cell Distribution Width 13.3 % (11.8-14.3); White Blood Cell 6.4 10^3/uL (4.4-10.8)
[2024-09-26 09:00] VITALS: BP 133/78; PULSE 105; RESP 20; TEMP 97; O2SAT 94
[2024-09-26] MEDS: ASPirin 81 mg TAB PO SCH (10:01)
[2024-09-26] MEDS: ENOXAPARIN SOD 40 MG/0.4 ML SYRINGE SC SCH (10:01)
[2024-09-26 13:07] VITALS: BP 133/90; PULSE 89; RESP 20; TEMP 97.8; O2SAT 97
--- NOTE | 2024-09-26 15:36 | DVH ---
EXAM: CT HEAD WITHOUT CONTRAST INDICATION: uncontrolled HTN EXAM DATE: 09/26/2024 02:53 PM COMPARISON: None TECHNIQUE: CT of the head without intravenous contrast. Radiation Dose Information: CTDI volume is 57.52 mGy. Dose-length product is 1018.2 mGy*cm FINDINGS: There is no evidence of acute intracranial hemorrhage, extra-axial collection, mass effect, midline s hift, herniation or hydrocephalus. The ventricles, sulci and cisterns are age appropriate. The paez-w eloise differentiation is intact. The visualized paranasal sinuses and mastoid air cells are clear. The surrounding soft tissues and osseous structures are unremarkable. IMPRESSION: 1. No evidence of acute intracranial hemorrhage, mass effect or hydrocephalus. END IMPRESSION:
[2024-09-26] MEDS: ACETAMINOPHEN 325 MG TAB PO PRN (16:36)
[2024-09-26 17:17] VITALS: BP 146/93; PULSE 86; RESP 16; TEMP 97.6; O2SAT 98
--- NOTE | 2024-09-26 17:27 | DVHDS2 ---
New Physician D'charge PN Admitting Diagnosis Admitting Diagnosis chest pain Discharge Diagnosis anxiety Operations or Procedures none Reason(s) For Hospitalization Surgery Hospital Course 54 F who comes to ER for CP. She states she was feeling chest pressure and decided to come to ER. She was admitted to the hospital and CBC was normal and chemistry was also normal. She has EKG which showed sinus rhythm and she had cardiac troponins x2 that were negative. She mentioned she had similar episode 2 weeks ago and went to the ER and was discharged home as it was anxiety related. Patient does take clonazepam and setraline at home. Her CXR was negative and head ct also showed no acute abnormalities. She will be discharged home to continue her home regiment of anxiolytics and antidepressant. [facility] to arrange for all outpt follow up. Patient to discharge home. Treatment Plan Discharge Condition of Discharge Good Disposition Home Discharge Instructions Diet: Cardiac 2g Na,low cholest Activity: No Restrictions, As Tolerated Medications: see med sheet Follow Up Care Follow Up/Referral: pcp Discharge Statement: "Patient was advised to return to the ER or call 911 if any headaches, dizziness, shortness of breath, chest pain, abdominal pain, bleeding, fevers, or worsening of medical condition. Patient was counseled about treatment plan, medications, possible side effects, patientverbalized understanding. All questions were answered to the best of my ability. This discharge took greater then 30 minutes in planning, reviewing documentation, counseling the patient, and discussing with other team members." MIKAYLA ROSE MD September 26, 2024 17:27
--- NOTE | 2024-09-27 01:49 | DVHSR ---
APPROVED REPORT EXAM: Two-dimensional and M-mode echocardiogram with Doppler and color Doppler. Blood Pressure: 148/91 mmHg INDICATION Chest Pain RISK FACTORS Height: 62, Weight: 143 DIMENSIONS LVDd3.8 (3.8-5.7cm)LA (2D)2.8 (1.9-4.0cm)Aortic Root3.3 (2.0-3.7cm) LVDs2.5 (2.5-4.0cm)LA (MM) (1.9-4.0cm)Aortic Cusp Exc1.7 (1.5-2.0cm) EF (%) 65.0 (55-70%)Rt. Atrium3.5 (1.9-4.0cm)Asc. Aorta cm Mitral Valve MitralMitral Stenosis E wave0.65m/sMV Mean GR.mmHg A wave0.73m/sMV Peak GR.mmHg E/A ratio0.92D MVAcm2 DECEL [id number] 1/2 [id number] IVRTmsDop MVA3.22cm2 Aortic Valve Aortic ValveAortic Stenosis V11.52m/Diamond Mean GR.4mmHg V21.37m/Diamond Peak GR.8mmHg LVOT Diameter1.6 (1.8-2.4cm)Doppler AVA2.23cm2 Pulmonic Valve V21.16m/s Tricuspid Valve TR Velocity2.31m/s [id number] Conclusion LV EF IS 65% NORMAL VALVES NORMAL RV FUNCTION NO EFFUSION
== END 2024-09-26 20:02 | disposition home or self-care (01) | DRG 313 ==
LOC: ER 16:32 → EDBD 16:32 → OVERFLOW 22:05 → EAST 23:27
PROVIDERS: ADMIT Internal Medicine; ATTEND Internal Medicine
DX: R07.89 Other chest pain (principal); I16.9 Hypertensive crisis, unspecified; F41.9 Anxiety disorder, unspecified; Z79.899 Other long term (current) drug therapy; I10 Essential (primary) hypertension
CPT/HCPCS: 36415; 70450; 71045; 80053; 80061; 81001; 83036; 83690; 83880; 84443; 84484; 85025; 93005; 93306; 96361; 96374; G0378; J2470